=== PATIENT | male | born 1940 | race Caucasian/White ===

== ENCOUNTER 2018-04-25 11:46 | Emergency (ER) | payer MEDICARE, BC ==
[~2018-04-25] VITALS: Ht 167.6 cm; Wt 72.7 kg
[~2018-04-25 11:46] MED LIST: AMBIEN 10MG10 MG PO; AMBIEN 5MG TABLE5 MG PO; AMBIEN10 MG PO; ASPIRIN 81M81 MG/TA2 PO; ATIVAN 0.50.5 MG/TAB PO; CELEXA10 MG PO; CEPHALEXIN250 M1 PO; COLACE 100100 MG/CAP PO; GLUCOTROL 5M5 MG/TAB PO; HYZAAR 12.5 MG-1 TAB PO; LIORESAL 1010 MG/TAB PO; LIPITOR; LIPITOR 10MG10 MG PO; NEURONTIN300 MG/CAP PO; NORCO 325 MG-51 TAB PO; NORCO 325 MG-7.1 TAB PO; PLAVIX 75MG TAB75 MG PO; ST. JOSEPH81 M2 PO; TOPROL XL 25MG25 MG PO; VIAGRA 25MG TAB25 MG PO; ZOLOFT 25MG25 MG PO
[2018-04-25 11:55] VITALS: TEMP 975
[2018-04-25] MEDS ORDERED: ULTRAM 50MG TAB50 MG PO (16:21)
[2018-04-25 16:44] VITALS: BP 144/86; PULSE 65
== END 2018-04-25 16:45 | disposition home or self-care (01) ==
LOC: COL.ER 11:46
DX: S06.0X0A Concussion without loss of consciousness, initial encounter (principal); S62.102A Fracture of unspecified carpal bone, left wrist, initial encounter for closed fracture; Z79.82 Long term (current) use of aspirin; W01.0XXA Fall on same level from slipping, tripping and stumbling without subsequent striking against object, initial encounter; Y92.481 Parking lot as the place of occurrence of the external cause
CPT/HCPCS: J2704; J3010

== ENCOUNTER 2018-12-19 01:19 | Inpatient (IN) | payer MEDICARE, BC ==
[~2018-12-19] VITALS: Ht 170.2 cm; Wt 70.6 kg
[~2018-12-19 01:19] MED LIST changes: +ULTRAM 50MG TAB50 MG PO
[2018-12-19 01:34] LABS: BASO % 0.3 % (0.0-2.0); EOS # 0.1 (0.0-0.7); EOS % 1.8 % (0-4.0); GRAN # 5.7 (1.4-6.5); GRAN % 73.3 % (42.2-75.2); HEMATOCRIT 42.8 % (42.0-52.0); HEMOGLOBIN 14.2 g/dl (13.5-18.0); LYMPH # 0.9 (1.2-3.4); LYMPH % 11.8 % (20.0-51.0); MEAN CELL VOLUME 95 fl (80.0-100.0); MEAN CORPUSCULAR HEMOGLOBIN 32 pg (27.0-31.0); MEAN CORPUSCULAR HGB CONC 33 g/dl (33.0-37.0); MEAN PLATELET VOLUME 9.2 fl (7.4-10.4); MONO % 12.4 % (1.7-9.3); PLATELET COUNT 168 K/mm3 (130-400); REDCELL DISTRIBUTION WIDTH-CV 12.8 % (11.5-14.5)
[2018-12-19 01:38] LABS: PROTHROMBIN TIME 11.3 SECONDS (9.7-12.8)
[2018-12-19 01:42] LABS: ALANINE AMINOTRANSFERASE 12 U/L (21-72); ALBUMIN 4.3 gm/dL (3.5-5.0); ALKALINE PHOSPHATASE 62 U/L (50-136); ANION GAP 9 mmol/L (7-16); AST,SGOT 23 U/L (15-37); BILIRUBIN,TOTAL 0.5 mg/dL (0.0-1.0); BLOOD UREA NITROGEN 12 mg/dL (9-20); CALCIUM 9.6 mg/dL (8.4-10.2); CARBON DIOXIDE 31 mmol/L (22-30); CHLORIDE 98 mmol/L (98-107); CREATININE, serum 0.77 (0.66-1.25); GLUCOSE 117 mg/dL (74-106); POTASSIUM 4.7 mmol/L (3.4-5.0); SODIUM 138 mmol/L (137-145); TOTAL PROTEIN 7.5 gm/dL (6.4-8.2)
[2018-12-19 01:55] LABS: TROPONIN-I < 0.012 ng/mL (0.000-0.035)
[2018-12-19 03:19] LABS: COLLECTION METHOD CLEAN CATCH
[2018-12-19 03:26] LABS: MUCOUS Present /lpf; PH 6 (5-8); SQUAMOUS EPITHELIAL None Seen /hpf; URINE APPEARANCE Clear; URINE BACTERIA None Seen /hpf; URINE BILIRUBIN Negative (NEGATIVE); URINE BLOOD 2+ (NEGATIVE); URINE COLOR Yellow; URINE GLUCOSE Negative (NEGATIVE); URINE KETONE Negative (NEGATIVE); URINE LEUKOCYTE ESTERASE Negative (NEGATIVE); URINE NITRATE Negative (NEGATIVE); URINE PROTEIN(semi-quant) Negative (NEGATIVE); URINE UROBILINOGEN >=4.0 mg/dL (NEGATIVE)
--- NOTE | 2018-12-19 03:45 | NUR ---
Report rcvd from JONAH Nguyen. Pt will be transferred to room 357 on the medical floor.
--- NOTE | 2018-12-19 04:00 | NUR ---
Pt arrived to floor, pt assessment complete. Pt R eye hematoma considerable. Pt is very weak, will need a 2 person assist to help to bedside commode. Pt is a poor historian, and does say he has terrible short term memory. All vitals WNL, pt reports no pain. No further concerns at this time. Call light and personal cell phone within reach.
[2018-12-19 05:49] VITALS: BP 142/77; PULSE 81; TEMP 98.1
--- NOTE | 2018-12-19 07:19 | NUR ---
Report given to JONAH Castro. Pt has not been seen by the hospitalist, and no H&P has been completed. Pt states he is a DNR, will need the hospitalist to discuss this with him.
[2018-12-19 07:45] VITALS: BP 136/79; PULSE 81; TEMP 99
--- NOTE | 2018-12-19 10:40 | NUR ---
Pt awake and alert upon entry, no C/O pain at this time, assisted to bedside commode with 2X assist, large hematoma around right eye tender to touch, shift assessments complete, left Pt call light in reach, bed in lowest position.
[2018-12-19 11:28] VITALS: BP 137/83; PULSE 69; TEMP 98.2
[2018-12-19 11:30] VITALS: BP 137/83; PULSE 70; TEMP 98.2
[2018-12-19 16:00] VITALS: BP 171/99; PULSE 69; TEMP 98.1
--- NOTE | 2018-12-19 19:24 | NUR ---
Pt rested in the room today, no C/O pain, Pt unsteady on feet and requires X2 assist to the bedside commode, VS have remained stable.
--- NOTE | 2018-12-19 19:27 | NUR ---
Report given to JONAH aHley.
[2018-12-19 20:04] VITALS: BP 127/81; PULSE 72; TEMP 98.3
[2018-12-20] VITALS (8 sets, daily range): BP systolic 105–157; BP diastolic 64–95; PULSE 70–102; TEMP 97.5–98.4
--- NOTE | 2018-12-20 07:00 | NUR ---
Report rcvd from JONAH Castro. Pt assessment completed. Pt showing signs of some confusion when waking up. Pt states "I'm in [place]" when asked where he is. Nurse reorients pt, and tells him he is not in [place], and pt states "Damn it! I'm in the hospital, not [place]!" Pt appears upset when he knows where he is, and says he is somewhere else. Pt has noted problems with Short Term Memory. Pt has been using the bedside commode due to vision problems and general weakness. Pt has no complaints of severe pain, but some 2-3/10 pain when he opens and closes his right eye. Pt's children Elliot and Julia would like an update from the doctor on their father's condition. Night was otherwise unremarkable. Report given to JONAH Null and Student RN.
[2018-12-20 07:09] LABS: BASO % 0.1 % (0.0-2.0); EOS # 0.2 (0.0-0.7); EOS % 2.7 % (0-4.0); GRAN # 4.5 (1.4-6.5); GRAN % 64.1 % (42.2-75.2); HEMATOCRIT 37.1 % (42.0-52.0); HEMOGLOBIN 12.3 g/dl (13.5-18.0); LYMPH # 1.4 (1.2-3.4); LYMPH % 19.7 % (20.0-51.0); MEAN CELL VOLUME 97 fl (80.0-100.0); MEAN CORPUSCULAR HEMOGLOBIN 32 pg (27.0-31.0); MEAN CORPUSCULAR HGB CONC 33 g/dl (33.0-37.0); MEAN PLATELET VOLUME 9.6 fl (7.4-10.4); MONO # 0.9 (0.1-0.6); MONO % 13.3 % (1.7-9.3); PLATELET COUNT 163 K/mm3 (130-400); RED BLOOD COUNT 3.84 M/mm3 (4.20-5.60)
[2018-12-20 07:31] LABS: ALBUMIN 3.6 gm/dL (3.5-5.0); BILIRUBIN,TOTAL 0.9 mg/dL (0.0-1.0); CALCIUM 8.4 mg/dL (8.4-10.2); CREATININE, serum 0.62 (0.66-1.25); POTASSIUM 3.6 mmol/L (3.4-5.0); TOTAL PROTEIN 6.4 gm/dL (6.4-8.2)
--- NOTE | 2018-12-20 10:45 | NUR ---
Initial visit; Sound Effects Supervisor let patient know of the availability of spiritual care and offered God's blessings.
--- NOTE | 2018-12-20 13:22 | NUR ---
THIERRY met with the patient to discuss discharge plan. The patient lives alone in [place]. He states that he has two children: Dafne Massey (ph#[phone]) and Cornel Massey. Dafne lives in [place] and Cornel lives in [place]. He states that he has good friend support in town. He reports independence with ADLs and has a cane and walker. He states that he receives private duty services two days a week from [facility]. He states that they help with housekeeping, shopping, and running errands. He also reports that he has applied for assisted living at [facility] and is on the waiting list. The patient's PCP is Dr. Kalia Velasquez and he receives his medications from [facility]. He reports no difficulties obtaining his meds. The patient does not have advanced directives in EMR, but he states that he believes he has them completed and that Dr. Velasquez's office should have a copy. He states that he would have designated his daughter, Dafne. THIERRY contacted Eva's office and requested a copy. The casting finisher reports that they just have his Living Will and will fax it to medical. THIERRY to inform the patient. The patient plans to return home upon discharge. THIERRY discussed home health services and provided him with Medicare.gov's list of home health agencies that serve [place]. The patient reports that he will think about this. SW to continue to follow.
--- NOTE | 2018-12-20 18:56 | NUR ---
Pt stable and alert and oriented at this time. Pt had two episodes this afternoon where he sees people who are not there and while seeing them pt answers orientation questions accurately. Hospitalist updated and NNO. Pt went down for CT without issue this afternoon and nursing professor went to assist. Pt IV patent with fluids running per orders no redness or infiltration noted. Pt SOB at times. Pt coughs frequently this afternoon with some production noted. Pt given TEsslan chet to help manage cough per orders. Pt's daughter update and is worried about her father going home when is obviously weak and having some hallucinations of people that are not there. Pt has low vision and items placed to where pt can see them and access them. Pt call light in pt's lap.
--- NOTE | 2018-12-20 19:42 | NUR ---
Pt report given to Thom MCKENZIE.
--- NOTE | 2018-12-20 21:57 | NUR ---
Pt doing ok, resting in bed. A/O with VSS. Has medium sized hematoma to right eye, swollen and bruised. Decreased vision in that eye. Patient also OMAHA. Has NS running in L AC. Patient does not have any other concerns at this time. Call light within reach, will continue to monitor
--- NOTE | 2018-12-20 22:44 | NUR ---
Pt started having some confusion/hallucinations. Seeing things on floor that are not there. Re-oriented patient with no issues
[2018-12-21] VITALS (9 sets, daily range): BP systolic 118–159; BP diastolic 65–98; PULSE 70–90; TEMP 97.2–98.8
--- NOTE | 2018-12-21 01:47 | NUR ---
Patient doing ok. Resting in bed. Ambulated to bathroom x1 assist. No concerns at this time. Call light within reach, will continue to monitor
--- NOTE | 2018-12-21 07:10 | NUR ---
PATIENT IS RESTING IN BED WITH EYES CLOSED, PERSONAL ITEMS AND CALL LIGHT IS WIHTIN REACH.
[2018-12-21 08:46] LABS: BASO % 0.1 % (0.0-2.0); EOS # 0.2 (0.0-0.7); EOS % 2.5 % (0-4.0); GRAN # 4.7 (1.4-6.5); GRAN % 69.7 % (42.2-75.2); HEMATOCRIT 41.2 % (42.0-52.0); HEMOGLOBIN 13.7 g/dl (13.5-18.0); LYMPH % 15.2 % (20.0-51.0); MEAN CELL VOLUME 96 fl (80.0-100.0); MEAN CORPUSCULAR HEMOGLOBIN 32 pg (27.0-31.0); MEAN CORPUSCULAR HGB CONC 33 g/dl (33.0-37.0); MEAN PLATELET VOLUME 9.4 fl (7.4-10.4); MONO # 0.8 (0.1-0.6); MONO % 12.2 % (1.7-9.3); PLATELET COUNT 193 K/mm3 (130-400); RED BLOOD COUNT 4.31 M/mm3 (4.20-5.60); REDCELL DISTRIBUTION WIDTH-CV 12.7 % (11.5-14.5)
--- NOTE | 2018-12-21 10:27 | NUR ---
THIERRY met with the patient to review discharge plan. THIERRY had the patient's daughter, Dafne, on speaker phone. The patient reports that he does not feel comfortable returning home yet. The patient's daughter was in agreeance to this. The patient's daughter also expressed her frustrations with the patient not being inpatient and concerns for the patient's recent hallucinations. The patient then informed THIERRY that he has been seeing people in his room. Dafne requested that the patient have a neuro consult and and for the hospitalist, Dr. Bautista, to call her. THIERRY informed Dr. Bautista and the WILVER-Cristy, Sonia, of the above information. THIERRY provided Dr. Bautista with Dafne's phone number. The patient and Dafne would like to private pay for a SNF stay. THIERRY presented and explained the Patient Choice Form to the patient. The patient chose [facility]. Patient Choice Form signed by the patient and he was provided a copy. THIERRY contacted and faxed a referral to Viviane at [facility]. THIERRY awaiting their screen.
--- NOTE | 2018-12-21 19:32 | NUR ---
Report given to oncoming shift. Patient is resting in bed with eyes closed. Personal items and call light is within reach.
[2018-12-22 05:10] VITALS: BP 134/82; PULSE 93; TEMP 98.5
[2018-12-22 06:23] LABS: BASO % 0.1 % (0.0-2.0); EOS # 0.2 (0.0-0.7); GRAN # 5.1 (1.4-6.5); GRAN % 68.6 % (42.2-75.2); HEMOGLOBIN 12.2 g/dl (13.5-18.0); LYMPH # 1.2 (1.2-3.4); LYMPH % 16.7 % (20.0-51.0); MEAN CELL VOLUME 94 fl (80.0-100.0); MEAN CORPUSCULAR HEMOGLOBIN 31 pg (27.0-31.0); MEAN CORPUSCULAR HGB CONC 33 g/dl (33.0-37.0); MEAN PLATELET VOLUME 9.6 fl (7.4-10.4); MONO # 0.8 (0.1-0.6); MONO % 11.3 % (1.7-9.3); PLATELET COUNT 187 K/mm3 (130-400); RED BLOOD COUNT 3.88 M/mm3 (4.20-5.60); REDCELL DISTRIBUTION WIDTH-CV 12.4 % (11.5-14.5)
[2018-12-22 06:29] LABS: HEMATOCRIT 36.6 % (42.0-52.0)
[2018-12-22 06:39] LABS: CALCIUM 8.7 mg/dL (8.4-10.2); CREATININE, serum 0.53 (0.66-1.25); POTASSIUM 3.2 mmol/L (3.4-5.0)
[2018-12-22 07:15] VITALS: BP 149/79; PULSE 75; TEMP 97.7
--- NOTE | 2018-12-22 10:00 | NUR ---
Pt reports headache 1 out of 10 on pain scale, requesting "Aspirin," states, "it's just nagging at me." Provider notified. Orders received and PRN medication administered per orders.
[2018-12-22 10:53] VITALS: BP 136/75; PULSE 65; TEMP 98
--- NOTE | 2018-12-22 13:38 | NUR ---
Viviane, at [facility], reports that they will follow the patient. They would like to see the patient's psych consult. The psych consult is pending. SW to continue to follow.
--- NOTE | 2018-12-22 14:32 | NUR ---
Spoke with pt's daughter,Dafne, concerning her father's status as OBS pt. Answered all her questions and she voiced understanding. She also stated she had wanted to talk with Dr. Cervantes concerning her dad's case. Called Dr. Cervantes concerning this and he stated he would contact her. .
--- NOTE | 2018-12-22 16:00 | NUR ---
Pt sitting up in chair, takes sched meds without difficulty. Ammonia Operator at bedside. Pt will call when ready to return to bed. No further needs reported. Call light in reach.
[2018-12-22 16:45] VITALS: BP 138/83; PULSE 74; TEMP 98.1
--- NOTE | 2018-12-22 19:25 | NUR ---
Report with JONAH Deleon. Pt sitting up in bed eating dinner, denies needs at this time. Call light in reach. Bed alarm on.
[2018-12-22 20:28] VITALS: BP 139/81; PULSE 75; TEMP 97.9
[2018-12-22 23:21] VITALS: BP 151/77; PULSE 72; TEMP 98.9
[2018-12-23 03:58] VITALS: BP 156/70; PULSE 75; TEMP 98.2
[2018-12-23 08:00] VITALS: BP 156/88; PULSE 78; TEMP 98.5
[2018-12-23 08:10] LABS: CALCIUM 9.1 mg/dL (8.4-10.2); CREATININE, serum 0.65 (0.66-1.25); POTASSIUM 3.7 mmol/L (3.4-5.0)
--- NOTE | 2018-12-23 08:42 | NUR ---
Spoke with Dafne pt daughter regarding her concerns for observation status. She stated that she felt there was an error on the physician's part from admit by not placing the patient in inpatient status. She requested that the inpatient order be backdated to admit or at least back to Thursday12/20/18. Informed her that unable to backdate Medicare inpatient orders and that her father was an inpatient from 12/22/18. She stated that she wanted to capture the previous midnight stays so that she could avoid paying a $13,000 skilled stay bill. Again advised her that we are unable to do this. Passed information on to my supervisor winter Alecia Chaparro, Dafne asked to be called at 11:15 this morning in hopes of resolving this. Explained to her the rules of Medicare and requirements for inpatient status change, she verbalized understanding yet reports that she wanted to challenge Dr Bautista judgement for leaving her father as an OBS patient.
--- NOTE | 2018-12-23 09:42 | NUR ---
SW contacted and faxed updates, along with the patient's psych and neuro consult to Viivane at [facility]. SW awaiting their screen.
[2018-12-23 11:30] VITALS: BP 149/87; PULSE 69; TEMP 98.5
[2018-12-23] MEDS ORDERED: OMNICEF 300MG300 MG PO (14:12)
[2018-12-23] MEDS ORDERED: MIRTAZAPINE7.5 MG PO (14:13)
[2018-12-23] MEDS ORDERED: PRINIVIL10 MG PO (14:13)
[2018-12-23] MEDS ORDERED: SEROQUEL 2525 MG/TAB PO (14:14)
--- NOTE | 2018-12-23 14:46 | NUR ---
Viviane, at [facility], reports that they are able to accept the patient and that they have spoke to the patient's daughter, Dafne, about the private pay rates and that she is agreeable to private pay. The hospitalist, Dr. Cervantes, contacted and updated Dafne and she is in agreeance with the patient discharging. The patient is to discharge today, 12/23, to [facility] for a private pay skilled stay. Transportation was scheduled for 1500, via [facility]. THIERRY informed the patient, RN, and the patient's daughter (Dafne), via phone. They were all in agreeance to the time. Dafne is in agreeance with the patient discharging. Dafne also had questions about the patient's bills being mailed to him while he is at [facility]. THIERRY consulted Financial Counselor, Obdulia. Obdulia plans to contact Dafne. Dafne had no other questions or concerns for SW. No additional needs at this time.
--- NOTE | 2018-12-23 15:04 | NUR ---
Patient discharges with staff at this time. Report called to JONAH Guerrero. Call back number provided. Discharge packet and patient belongings sent with.
== END 2018-12-23 15:04 | DRG 125 ==
LOC: COL.ER 01:19 → MEDICAL 02:31
PROVIDERS: Emergency Medicine; Physician Assistant; ADMIT Surgery
DX: S02.31XA Fracture of orbital floor, right side, initial encounter for closed fracture (principal); F10.951 Alcohol use, unspecified with alcohol-induced psychotic disorder with hallucinations; W19.XXXA Unspecified fall, initial encounter; Y92.009 Unspecified place in unspecified non-institutional (private) residence as the place of occurrence of the external cause; S80.211A Abrasion, right knee, initial encounter; S05.11XA Contusion of eyeball and orbital tissues, right eye, initial encounter; F41.9 Anxiety disorder, unspecified; E78.5 Hyperlipidemia, unspecified; G47.00 Insomnia, unspecified; G90.9 Disorder of the autonomic nervous system, unspecified; F32.9 Major depressive disorder, single episode, unspecified; B34.8 Other viral infections of unspecified site; H05.20 Unspecified exophthalmos; I10 Essential (primary) hypertension; Z79.82 Long term (current) use of aspirin; Z96.652 Presence of left artificial knee joint; Z87.891 Personal history of nicotine dependence; Z85.46 Personal history of malignant neoplasm of prostate; E87.6 Hypokalemia
CPT/HCPCS: OP; 99223; 99233-AI; A9284; G0378; J0690; J1650; J7030

== ENCOUNTER 2018-12-25 18:10 | Inpatient (IN) | payer MEDICARE, BC ==
[~2018-12-25] VITALS: Ht 167.6 cm; Wt 69.5 kg
--- NOTE | 2018-12-25 03:00 | NUR ---
PT PUT ON BiPAP AROUND 0230. TAKEN TO CT FOR HEAD/NECK CT. PT HAD BEEN ON 4-5 LITERS O2 VIA N.C. UNTIL BiPAP STARTED. PT VERY SOMNOLENT AFTER ATIVAN. LUNGS REMAIN COARSE. PT OFTEN SNORING/SNORTING HE BREATHES. BiPAP DIFFICULT TO KEEP POSITIONED DUE TO C-COLLAR ORDERED FOR PT BY HOSPITALIST. C-COLLAR ORDERED FOR ABNORMALITY SEEN ON PREVIOUS X-RAY.
[~2018-12-25 18:10] MED LIST changes: +MIRTAZAPINE7.5 MG PO; +OMNICEF 300MG300 MG PO; +PRINIVIL10 MG PO; +SEROQUEL 2525 MG/TAB PO
[2018-12-25] MEDS ORDERED: ATROVENT I0.2 MG/1 M IH (18:46)
[2018-12-25 19:13] LABS: BASO % 0.2 % (0.0-2.0); EOS % 0.1 % (0-4.0); GRAN # 12.2 (1.4-6.5); GRAN % 83.8 % (42.2-75.2); HEMATOCRIT 36.9 % (42.0-52.0); HEMOGLOBIN 12.4 g/dl (13.5-18.0); LYMPH # 1.2 (1.2-3.4); LYMPH % 8.3 % (20.0-51.0); MEAN CELL VOLUME 94 fl (80.0-100.0); MEAN CORPUSCULAR HEMOGLOBIN 32 pg (27.0-31.0); MEAN CORPUSCULAR HGB CONC 34 g/dl (33.0-37.0); MEAN PLATELET VOLUME 9.8 fl (7.4-10.4); MONO % 7.2 % (1.7-9.3); PLATELET COUNT 237 K/mm3 (130-400); RED BLOOD COUNT 3.91 M/mm3 (4.20-5.60); REDCELL DISTRIBUTION WIDTH-CV 12.7 % (11.5-14.5)
[2018-12-25 19:24] LABS: ALBUMIN 3.9 gm/dL (3.5-5.0); CALCIUM 9.2 mg/dL (8.4-10.2); CREATININE, serum 0.97 (0.66-1.25); POTASSIUM 3.4 mmol/L (3.4-5.0); TOTAL PROTEIN 7.1 gm/dL (6.4-8.2)
[2018-12-25 21:16] LABS: COLLECTION METHOD CLEAN CATCH
[2018-12-25 21:24] LABS: MUCOUS Present /lpf; PH 5 (5-8); SQUAMOUS EPITHELIAL 0-2 /hpf; URINE APPEARANCE Hazy; URINE BACTERIA None Seen /hpf; URINE BILIRUBIN Negative (NEGATIVE); URINE BLOOD 1+ (NEGATIVE); URINE COLOR Yellow; URINE GLUCOSE Negative (NEGATIVE); URINE KETONE 1+ (NEGATIVE); URINE LEUKOCYTE ESTERASE Negative (NEGATIVE); URINE NITRATE Negative (NEGATIVE); URINE PROTEIN(semi-quant) 1+ (NEGATIVE); URINE UROBILINOGEN >=4.0 mg/dL (NEGATIVE)
[2018-12-25 21:36] LABS: ARTERIAL BLD GAS O2 SATURATION 91.3 % (92-100); ARTERIAL BLD GAS TCO2 CT 25.4; ARTERIAL BLOOD GAS BASE EXCESS 0.3 (-2-2); ARTERIAL BLOOD GAS HCO3 24.3 meq/L (22-26); ARTERIAL BLOOD GAS PCO2 36.9 mmHg (35-45); ARTERIAL BLOOD GAS PO2 59.9 mmHg (80-100); ARTERIAL BLOOD GAS pH 7.44 (7.35-7.45)
[2018-12-25 22:52] VITALS: BP 128/52; PULSE 101; TEMP 97.6
[2018-12-25] MEDS ORDERED: TYLENOL SU650 MG/SUP RC (23:08)
[2018-12-25 23:09] LABS: MAGNESIUM 1.8 mg/dL (1.6-2.3); PHOSPHOROUS 3.7 mg/dL (2.5-4.5)
[2018-12-25] MEDS ORDERED: DULCOLAX S10 MG/SUPP RC (23:09)
[2018-12-25 23:12] LABS: ALCOHOL(ethanol),MEDICAL < 10 mg/dL
[2018-12-25] MEDS ORDERED: IMODIUM 2MG CAPS2 MG PO (23:16)
--- NOTE | 2018-12-25 23:30 | NUR ---
PT ADMITTED WITH Dx OF BRONCHITIS/ELEV. WBCs. PT DISORIENTED. PT HAS FREQUENT, HARSH NON-PRODUCTIVE COUGH. LUNGS COARSE THROUGHOUT.
[2018-12-25] MEDS ORDERED: IPRATROPIUM BROM3 M1 IH (23:32)
[2018-12-25] MEDS ORDERED: MILK OF MA400 MG/52 PO (23:33)
[2018-12-25] MEDS ORDERED: MYLANTA MAXIMU355 M1 PO (23:39)
[2018-12-25] MEDS ORDERED: TESSALON P100 MG/CAP PO (23:40)
[2018-12-25] MEDS ORDERED: TYLENOL 325MG325 MG PO (23:41)
[2018-12-25 23:56] LABS: TRICYCLIC ANTIDEPRESS URINE NEGATIVE
[2018-12-26] VITALS (45 sets, daily range): BP systolic 109–138; BP diastolic 59–89; PULSE 104–118; TEMP 98–99.7; O2SAT 98–100
[2018-12-26 04:12] LABS: ARTERIAL BLD GAS O2 SATURATION 95.9 % (92-100); ARTERIAL BLD GAS TCO2 CT 20.4; ARTERIAL BLOOD GAS BASE EXCESS -8.6 (-2-2); ARTERIAL BLOOD GAS HCO3 18.9 meq/L (22-26); ARTERIAL BLOOD GAS PCO2 47.9 mmHg (35-45); ARTERIAL BLOOD GAS PO2 98.6 mmHg (80-100); ARTERIAL BLOOD GAS pH 7.21 (7.35-7.45)
--- NOTE | 2018-12-26 04:15 | NUR ---
PT GIVEN 2 DOSES OF ROMAZICON TO REVERSE EFFECTS OF ATIVAN. ROMAZICON SEEMED TO HAVE NO EFFECT. PT REMAINED SOMNOLENT WITH LABORED RESPIRATIONS. PT HAD BEEN INCONTINENT OF URINE. PT BLADDER SCANNED TO SEE IF HE WAS RETAINING URINE. SCANNER READ 0 mL.
--- NOTE | 2018-12-26 04:45 | NUR ---
HOSPITALIST ROLLER INSPECTOR ALARMED BY PT'S BREATHING. PT WAS BAGGED. Vikas MCINTOSH NOTIFIED, RT NOTIFIED.
--- NOTE | 2018-12-26 05:30 | NUR ---
PT ADMIN. ETOMIDATE 20 mg FOR INTUBATION. AT 0510 PT ADMIN. SUCCINYL AGUSTIN 120 mg. AT 0519 PT ADMIN. 100 mcg OF FENTANYL AND AT 0521 PT ADMIN. 2 mg OF VERSED. PT INTUBATED BY E.D. PHYSICIAN AND BAGGED. PT WAS SUCTIONED MULTIPLE TIMES. XRAYS OBTAINED OF CHEST AND ABDOMEN.
--- NOTE | 2018-12-26 06:00 | NUR ---
Pt arrived to ICU01 with multiple staff members including supervisor malt house, RT, AUTOMATIC CLIPPER AND STRIPPER with primary nurse from surgical unit. Pt is currently intubated with OG placed. C spine in place. Pt moved from surgical bed into ICU bed. Restraints placed, monitors applied. Pt was incontinent of bowel and bladder in brief which was changed at this time. No brief was replaced following pericare. Bruising noted to right eye with edema, as well as healing bruising noted to right knee. Pt not following commands at this time.
--- NOTE | 2018-12-26 06:15 | NUR ---
Bedside report received from
[2018-12-26 06:17] LABS: ARTERIAL BLD GAS O2 SATURATION 98.3 % (92-100); ARTERIAL BLOOD GAS BASE EXCESS -2.6 (-2-2); ARTERIAL BLOOD GAS HCO3 22.7 meq/L (22-26); ARTERIAL BLOOD GAS PCO2 41.4 mmHg (35-45); ARTERIAL BLOOD GAS PO2 127.3 mmHg (80-100); ARTERIAL BLOOD GAS pH 7.35 (7.35-7.45)
[2018-12-26 06:18] LABS: ARTERIAL BLD GAS TCO2 CT 24
--- NOTE | 2018-12-26 06:30 | NUR ---
PT TRANSFERRED TO ICU ROOM 1 AROUND 0600. REPORT GIVEN.
--- NOTE | 2018-12-26 07:30 | NUR ---
Pts daughter called to see status on pt transfer. Pt has not been accepted at this time, awaiting call from for notification, ensured that staff will notify family ximena once notification has been obtained either way. At this time daughter notified this nurse that per nurse at [facility] ([facility]) pt has not had a fall following arrival to their care. Daughter told this nurse that pt has hallucinations at baseline. Is aware of new C spine findings and verbally expressed thoughts of "I know things can get missed from previous readings." I assured family member that the LAYUP WORKER in charge of this pts care was next to me in the unit and notified.
--- NOTE | 2018-12-26 07:48 | NUR ---
Vancomycin Initial Dosing Pharmacy Note Ordering provider: Vj Mercedes MD Indication/duration: pneumonia, ~7 days Relevant comorbidities: positive for rhinovirus/enterovirus LABS: SCr 0.97, CrCl~49, GFR 75 Recommendation: Will continue with Vancomycin 1 gm IV q12h and check a Vancomycin trough prior to the 4th total dose on 12/27/18. Pharmacy will continue to [facility]. Loading dose: 1.5 grams Maintenance dose: 1 gram every 12 hours Trough goal: 15-20 ug/mL
[2018-12-26 08:00] LABS: HEMOGLOBIN 11.8 g/dl (13.5-18.0); MEAN CELL VOLUME 96 fl (80.0-100.0); MEAN CORPUSCULAR HEMOGLOBIN 32 pg (27.0-31.0); MEAN CORPUSCULAR HGB CONC 33 g/dl (33.0-37.0); MEAN PLATELET VOLUME 9.6 fl (7.4-10.4); PLATELET COUNT 199 K/mm3 (130-400); RED BLOOD COUNT 3.69 M/mm3 (4.20-5.60); REDCELL DISTRIBUTION WIDTH-CV 12.6 % (11.5-14.5)
[2018-12-26 08:04] LABS: HEMATOCRIT 35.5 % (42.0-52.0)
[2018-12-26 08:11] LABS: ALBUMIN 3.3 gm/dL (3.5-5.0); CALCIUM 8.1 mg/dL (8.4-10.2); CREATININE, serum 0.64 (0.66-1.25); POTASSIUM 4.4 mmol/L (3.4-5.0); TOTAL PROTEIN 6.2 gm/dL (6.4-8.2)
--- NOTE | 2018-12-26 08:35 | NUR ---
Report called to Surgical INSPECTOR LINEJONAH Samayoa at . Following report Flight transport team arrived for pt.
[2018-12-26 09:45] LABS: BAND 39 % (0-10); DOHLE BODIES PRESENT; LYMPHOCYTE 3 % (20.0-51.0); NEUTROPHILS 56 % (42.0-75.2); PLATELET ESTIMATE NORMAL (NORMAL)
[2018-12-27 13:35] LABS: ARTERIAL BLOOD GAS BASE EXCESS -0.1 (-2-2); ARTERIAL BLOOD GAS PCO2 42.8 mmHg (35-45); ARTERIAL BLOOD GAS PO2 76.5 mmHg (80-100); ARTERIAL BLOOD GAS pH 7.39 (7.35-7.45)
== END 2018-12-26 09:28 | disposition short-term general hospital (02) | DRG 193 ==
LOC: COL.ER 18:10 → JCC 20:34 → COL.ER 20:34 → ICU 12-26 05:47 → JCC 12-26 05:47 → ICU 12-26 09:28
PROVIDERS: Family Medicine; Nurse Practitioner Family; ADMIT Hospitalist
PROC: 0BH17EZ Insertion of Endotracheal Airway into Trachea, Via Natural or Artificial Opening (ICD-10-PCS; principal; 2018-12-26)
PROC: 5A09357 Assistance with Respiratory Ventilation, Less than 24 Consecutive Hours, Continuous Positive Airway Pressure (ICD-10-PCS; 2018-12-26)
DX: J18.9 Pneumonia, unspecified organism (principal); J96.01 Acute respiratory failure with hypoxia; G93.40 Encephalopathy, unspecified; I10 Essential (primary) hypertension; E78.5 Hyperlipidemia, unspecified; F32.9 Major depressive disorder, single episode, unspecified; F41.9 Anxiety disorder, unspecified; F10.10 Alcohol abuse, uncomplicated; W19.XXXA Unspecified fall, initial encounter; I51.7 Cardiomegaly; J20.9 Acute bronchitis, unspecified; B34.8 Other viral infections of unspecified site; J32.9 Chronic sinusitis, unspecified; R53.81 Other malaise; M19.90 Unspecified osteoarthritis, unspecified site; Z96.652 Presence of left artificial knee joint; Z96.698 Presence of other orthopedic joint implants; E87.6 Hypokalemia; Z85.820 Personal history of malignant melanoma of skin; Z85.46 Personal history of malignant neoplasm of prostate; Z85.51 Personal history of malignant neoplasm of bladder; Z79.82 Long term (current) use of aspirin; Z87.891 Personal history of nicotine dependence
CPT/HCPCS: 99223-AI; J0330; J0456; J2060; J2250; J2543; J2920; J3010; J3370; J3411; J3480; J7030; J7050; Q9967

== ENCOUNTER → 2020-07-27 | Outpatient (CLI) | payer MEDICARE, BC ==
[~2020-07-27] MED LIST changes: +ATROVENT I0.2 MG/1 M IH; +DULCOLAX S10 MG/SUPP RC; +IMODIUM 2MG CAPS2 MG PO; +IPRATROPIUM BROM3 M1 IH; +MILK OF MA400 MG/52 PO; +MYLANTA MAXIMU355 M1 PO; +TESSALON P100 MG/CAP PO; +TYLENOL 325MG325 MG PO; +TYLENOL SU650 MG/SUP RC
== END ==
LOC: ZCOL.LAB 16:04
DX: L02.11 Cutaneous abscess of neck (principal)

== ENCOUNTER 2023-04-11 17:48 | Emergency (ER) | payer MEDICARE, BC ==
[~2023-04-11] VITALS: Ht 172.7 cm; Wt 68.2 kg
[~2023-04-11 17:48] MED LIST changes: +ALA 100MG PO; +ALEVE 220MG220 MG PO; +ARICEPT10 MG PO; +DOXYCYCLINE HY100 MG PO; +FLONASEALLERGY NS; +FOSAMAX 70MG TA70 MG PO; +MIRALAX PA17 GM/Dose PO; +MITOCORE PO; +NAMENDA 10MG TA10 MG PO; +NATURE'S BLEND100 M2 PO; +OMEGA-3 1000 MG1 CAP PO; +PHENERGAN 25 TA25 MG PO; +PROTONIX 40MG T40 MG PO; +PULMICORT0.25 MG/2 IH; +SENOKOT S 50 MG1 TAB PO; +[UNRECOGNIZED DRUG - OTHER] PO; +[UNRECOGNIZED DRUG - OTHER] PO; +[UNRECOGNIZED DRUG - OTHER] PO
[2023-04-11 18:04] VITALS: TEMP 98.8
[2023-04-11 18:37] LABS: BASO % 0.3 % (0.0-2.0); EOS % 0.6 % (0.0-4.0); GRAN # 4.9 K/mm3 (1.4-6.5); GRAN % 72.2 % (42.2-75.2); HEMATOCRIT 38.6 % (42.0-52.0); HEMOGLOBIN 12.9 g/dl (13.5-18.0); LYMPH # 0.9 K/mm3 (1.2-3.4); MEAN CELL VOLUME 93 fl (80.0-100.0); MEAN CORPUSCULAR HEMOGLOBIN 31 pg (27-31); MEAN CORPUSCULAR HGB CONC 33 g/dl (33.0-37.0); MEAN PLATELET VOLUME 9.7 fl (7.4-10.4); MONO # 0.9 K/mm3 (0.1-0.6); MONO % 13.6 % (1.7-9.3); PLATELET COUNT 159 K/mm3 (130-400); RED BLOOD COUNT 4.16 M/mm3 (4.20-5.60); REDCELL DISTRIBUTION WIDTH-CV 13.1 % (11.5-14.5)
[2023-04-11 18:56] LABS: ALBUMIN 3.7 gm/dL (3.4-4.8); ALKALINE PHOSPHATASE 65 U/L (40-150); ANION GAP 10 mmol/L (7-16); AST,SGOT 17 U/L (5-34); BILIRUBIN,TOTAL 0.6 mg/dL (0.2-1.2); BLOOD UREA NITROGEN 20 mg/dL (8-26); CALCIUM 9.7 mg/dL (8.4-10.2); CARBON DIOXIDE 22 mmol/L (23-31); CHLORIDE 104 mmol/L (98-107); CREATININE, serum 0.94 mg/dL (0.72-1.25); GLUCOSE 104 mg/dL (70-99); POTASSIUM 3.9 mmol/L (3.5-4.5); SODIUM 136 mmol/L (136-145); TOTAL PROTEIN 6.8 gm/dL (6.2-8.1)
[2023-04-11 18:57] LABS: ALANINE AMINOTRANSFERASE < 6 U/L (0-55)
[2023-04-11] MEDS ORDERED: PAXLOVID CO-PA1 EACH PO (20:02)
[2023-04-11 21:15] VITALS: BP 117/75; PULSE 87
[2023-04-11 21:27] LABS: COLLECTION METHOD CLEAN CATCH
[2023-04-11 21:36] LABS: PH 5.5 (5.0-8.5); URINE APPEARANCE CLOUDY (CLEAR/HAZY); URINE BLOOD NEGATIVE (NEGATIVE); URINE COLOR Dark Yellow (YELLOW); URINE GLUCOSE NEGATIVE (NEGATIVE); URINE KETONE 1+ (NEGATIVE); URINE NITRATE NEGATIVE (NEGATIVE); URINE PROTEIN(semi-quant) 1+ (NEGATIVE)
[2023-04-11 21:54] LABS: MUCOUS PRESENT (NOT PRESENT); SQUAMOUS EPITHELIAL 0-2 /hpf (0-10); URINE BACTERIA OCCASIONAL /hpf (NONE SEEN); URINE RBC 0-2 /hpf (0-2)
== END 2023-04-11 21:15 | disposition home or self-care (01) ==
LOC: COL.ER 17:48
PROVIDERS: Nurse Practitioner
DX: U07.1 COVID-19 (principal); R50.9 Fever, unspecified; R53.1 Weakness; R41.82 Altered mental status, unspecified; R09.81 Nasal congestion; R05.9 Cough, unspecified

== ENCOUNTER → 2023-05-11 | Outpatient (REF) | payer MEDICARE, BC ==
[~2023-05-11] MED LIST changes: +PAXLOVID CO-PA1 EACH PO
[2023-05-11 18:06] LABS: COLLECTION METHOD CLEAN CATCH
[2023-05-11 18:42] LABS: PH 7.5 (5.0-8.5); URINE APPEARANCE CLOUDY (CLEAR/HAZY); URINE BLOOD NEGATIVE (NEGATIVE); URINE COLOR YELLOW (YELLOW); URINE GLUCOSE NEGATIVE (NEGATIVE); URINE KETONE NEGATIVE (NEGATIVE); URINE NITRATE NEGATIVE (NEGATIVE); URINE PROTEIN(semi-quant) 1+ (NEGATIVE)
== END ==
LOC: ZCOL.LAB 14:58
PROVIDERS: Internal Medicine
DX: N39.0 Urinary tract infection, site not specified (principal)

== ENCOUNTER → 2023-06-22 | Outpatient (REF) | payer MEDICARE, BC ==
[2023-06-22 16:21] LABS: COLLECTION METHOD CLEAN CATCH
[2023-06-22 16:51] LABS: PH 6.5 (5.0-8.5); URINE APPEARANCE CLOUDY (CLEAR/HAZY); URINE BLOOD NEGATIVE (NEGATIVE); URINE COLOR Dark Yellow (YELLOW); URINE GLUCOSE NEGATIVE (NEGATIVE); URINE KETONE TRACE (NEGATIVE); URINE NITRATE NEGATIVE (NEGATIVE); URINE PROTEIN(semi-quant) NEGATIVE (NEGATIVE)
[2023-06-22 17:42] LABS: SQUAMOUS EPITHELIAL 0-2 /hpf (0-10); URINE WBC >50 /hpf (0-2)
[2023-06-22 17:43] LABS: MUCOUS PRESENT (NOT PRESENT); URINE BACTERIA MODERATE /hpf (NONE SEEN); URINE CALCIUM OXALATE CRYSTAL PRESENT (NOT PRESENT)
== END ==
LOC: ZCOL.LAB 15:09
PROVIDERS: Internal Medicine
DX: N39.0 Urinary tract infection, site not specified (principal)

== ENCOUNTER 2023-09-27 10:51 | Emergency (ER) | payer MEDICARE, BC ==
[~2023-09-27] VITALS: Ht 165.1 cm; Wt 63.6 kg
[2023-09-27] MEDS ORDERED: NS 1,000 ML IV ONE (11:30)
[2023-09-27 11:38] LABS: BASO % 0.1 % (0.0-2.0); EOS # 0.1 K/mm3 (0.0-0.7); EOS % 0.8 % (0.0-4.0); GRAN # 5.9 K/mm3 (1.4-6.5); GRAN % 77.9 % (42.2-75.2); HEMOGLOBIN 12.1 g/dl (13.5-18.0); LYMPH # 1.1 K/mm3 (1.2-3.4); LYMPH % 14.6 % (20.0-51.0); MEAN CELL VOLUME 93 fl (80.0-100.0); MEAN CORPUSCULAR HEMOGLOBIN 31 pg (27-31); MEAN CORPUSCULAR HGB CONC 33 g/dl (33.0-37.0); MEAN PLATELET VOLUME 9.8 fl (7.4-10.4); MONO # 0.5 K/mm3 (0.1-0.6); MONO % 6.2 % (1.7-9.3); PLATELET COUNT 207 K/mm3 (130-400)
[2023-09-27 11:40] LABS: HEMATOCRIT 36.4 % (42.0-52.0)
[2023-09-27 11:53] LABS: ALBUMIN 3.6 g/dL (3.4-4.8); ALKALINE PHOSPHATASE 64 U/L (40-150); ANION GAP 9 mmol/L (7-16); AST,SGOT 14 U/L (5-34); BILIRUBIN,TOTAL 0.8 mg/dL (0.2-1.2); BLOOD UREA NITROGEN 16 mg/dL (8-26); CALCIUM 9.3 mg/dL (8.4-10.2); CHLORIDE 107 mEq/L (98-107); CREATININE, serum 0.84 mg/dL (0.72-1.25); GLUCOSE 119 mg/dL (70-99); POTASSIUM 3.7 mEq/L (3.5-4.5); SODIUM 140 mEq/L (136-145); TOTAL PROTEIN 6.3 g/dl (6.2-8.1)
[2023-09-27 12:02] LABS: ALANINE AMINOTRANSFERASE < 6 U/L (0-55)
[2023-09-27 12:09] LABS: COLLECTION METHOD CATHETER
[2023-09-27 12:21] LABS: URINE APPEARANCE Clear (CLEAR/HAZY); URINE BLOOD Negative (NEGATIVE); URINE COLOR YELLOW (YELLOW); URINE GLUCOSE Negative (NEGATIVE); URINE KETONE TRACE (NEGATIVE); URINE NITRATE Negative (NEGATIVE); URINE PROTEIN(semi-quant) Negative (NEGATIVE)
[2023-09-27 12:32] VITALS: BP 148/81; PULSE 74; TEMP 98.1
== END 2023-09-27 12:48 | disposition home or self-care (01) ==
LOC: COL.ER 10:51
PROVIDERS: Physician Assistant
DX: S09.90XA Unspecified injury of head, initial encounter (principal); Z87.891 Personal history of nicotine dependence; W19.XXXA Unspecified fall, initial encounter; Y92.129 Unspecified place in nursing home as the place of occurrence of the external cause
CPT/HCPCS: J7030

== ENCOUNTER 2023-09-28 13:59 | Emergency (ER) | payer MEDICARE, BC ==
[~2023-09-28] VITALS: Ht 170.2 cm; Wt 64.1 kg
[2023-09-28] MEDS ORDERED: Acetaminophen 325 MG TAB PO ONE (17:30)
[2023-09-28 17:57] VITALS: BP 148/76; PULSE 64; TEMP 97.8
== END 2023-09-28 17:57 | disposition home or self-care (01) ==
LOC: COL.ER 13:59
DX: S09.90XA Unspecified injury of head, initial encounter (principal); Z87.891 Personal history of nicotine dependence; W18.30XA Fall on same level, unspecified, initial encounter

== ENCOUNTER 2023-12-03 14:34 | Emergency (ER) | payer MEDICARE, BC ==
[~2023-12-03] VITALS: Ht 162.6 cm; Wt 79.2 kg
[2023-12-03] MEDS ORDERED: NS 500 ML IV ONE (15:30)
[2023-12-03 15:53] LABS: COLLECTION METHOD CLEAN CATCH
[2023-12-03 15:57] LABS: BASO % 0.3 % (0.0-2.0); EOS # 0.2 K/mm3 (0.0-0.7); EOS % 2.1 % (0.0-4.0); GRAN # 5.2 K/mm3 (1.4-6.5); GRAN % 71.5 % (42.2-75.2); HEMATOCRIT 38.9 % (42.0-52.0); HEMOGLOBIN 12.9 g/dl (13.5-18.0); LYMPH # 0.9 K/mm3 (1.2-3.4); LYMPH % 12.3 % (20.0-51.0); MEAN CELL VOLUME 95 fl (80.0-100.0); MEAN CORPUSCULAR HEMOGLOBIN 32 pg (27-31); MEAN CORPUSCULAR HGB CONC 33 g/dl (33.0-37.0); MEAN PLATELET VOLUME 9.8 fl (7.4-10.4); MONO % 13.4 % (1.7-9.3); PLATELET COUNT 196 K/mm3 (130-400); RED BLOOD COUNT 4.09 M/mm3 (4.20-5.60); REDCELL DISTRIBUTION WIDTH-CV 13.2 % (11.5-14.5)
[2023-12-03 15:58] LABS: PH 6.5 (5.0-8.5); URINE APPEARANCE CLEAR (CLEAR/HAZY); URINE BLOOD NEGATIVE (NEGATIVE); URINE COLOR YELLOW (YELLOW); URINE GLUCOSE NEGATIVE (NEGATIVE); URINE KETONE NEGATIVE (NEGATIVE); URINE NITRATE NEGATIVE (NEGATIVE); URINE PROTEIN(semi-quant) NEGATIVE (NEGATIVE)
[2023-12-03 16:16] LABS: ALBUMIN 3.7 g/dL (3.4-4.8); ALKALINE PHOSPHATASE 82 U/L (40-150); ANION GAP 12 mmol/L (7-16); AST,SGOT 14 U/L (5-34); BILIRUBIN,TOTAL 0.5 mg/dL (0.2-1.2); BLOOD UREA NITROGEN 16 mg/dL (8-26); CALCIUM 9.5 mg/dL (8.4-10.2); CHLORIDE 101 mEq/L (98-107); CREATININE, serum 0.94 mg/dL (0.72-1.25); GLUCOSE 106 mg/dL (70-99); POTASSIUM 4.2 mEq/L (3.5-4.5); SODIUM 136 mEq/L (136-145); TOTAL PROTEIN 6.8 g/dl (6.2-8.1)
[2023-12-03 16:38] LABS: ALANINE AMINOTRANSFERASE < 6 U/L (0-55)
[2023-12-03 16:54] VITALS: BP 111/70; PULSE 83
== END 2023-12-03 17:23 | disposition home or self-care (01) ==
LOC: COL.ER 14:34
PROVIDERS: Personal Emergency Response Attendant
DX: R41.0 Disorientation, unspecified (principal); I95.9 Hypotension, unspecified
CPT/HCPCS: J7040